=== PATIENT | female | born 1970 | race Caucasian/White ===

== ENCOUNTER → 2021-01-27 | Outpatient (CLI) | payer OTHER ==
--- NOTE | 2021-01-27 11:20 | REP ---
INDICATION: PRIMARY OSTEOARTHRITIS, UNSPECIFIED SITE. COMPARISON: None. TECHNIQUE: Five views were obtained. FINDINGS: Normal bone texture and alignment. No fractures. Mild facet arthropathy.. Sacroiliac joints unremarkable. Pedicles intact. Disc spaces well maintained. IMPRESSION: Mild facet arthropathy. Normal alignment. No fractures. <Electronically signed by Francisco Zaman > 01/27/21 111
== END ==
LOC: M LAB 10:33
PROVIDERS: ATTEND Physician Assistant
DX: M19.91 Primary osteoarthritis, unspecified site (principal)

== ENCOUNTER → 2022-08-31 | Outpatient (REF) | LOC: M PLAIMG 13:22 | PROVIDERS: ATTEND Internal Medicine | DX: Z11.52 Encounter for screening for COVID-19 (principal) ==